=== PATIENT | male | born 1970 | race Caucasian/White ===

== ENCOUNTER 2017-11-16 06:53 | Emergency (ER) | payer MEDICAID, OTHER ==
[2017-11-16] MEDS ORDERED: LORazepam 2 MG/ML INJ IVP ONE (07:25)
[2017-11-16] MEDS ORDERED: NS 1,000 ML IV ONE (07:25)
[2017-11-16] MEDS ORDERED: LORazepam 2 MG/ML INJ ONE (07:27)
[2017-11-16 07:42] LABS: PLATELET COUNT 261 10^3/uL (150-400)
[2017-11-16] MEDS ORDERED: chlordiazePOXIDE 25 MG CAP PO ONE (07:48)
--- NOTE | 2017-11-16 07:48 | EDPHY ---
HPI/HX/ROS/PE/MDM Narrative: CHIEF COMPLAINT: Sensation of rapid heart rate HPI: The patient is a 47 y/o male with a history of alcoholism and recent methamphetamine use complaining of the sensation of a rapid "hard" heart rate and panic over the last 24 hours. He says, "I've been drinking for a like a month straight and doing some meth. I must have had some bad stuff. Now my heart 's coming out of my chest and extreme paranoia." He denies dyspnea, abdominal pain, nausea, vomiting, diaphoresis. No cardiac disease history. He is feeling improved since receiving 1mg IV Ativan here. REVIEW OF SYSTEMS: Aside from elements discussed in the HPI, a comprehensive 10-point review of systems was reviewed and is negative. PMH: Alcoholism, history of IV drug abuse (denies current IV use), appendectomy SOCIAL HISTORY: Alcohol and methamphetamine abuse PHYSICAL EXAM: General:Patient is alert, in no acute distress. HR 98. ENT:Eyes are normal to inspection. ENT inspection normal. Neck: Normal inspection. Full range of motion. Respiratory:No respiratory distress. Breath sounds normal bilaterally. Cardiovascular: Regular rate and rhythm. Strong peripheral pulses. Normal cap refill. Abdomen:The abdomen is nontender to palpation. There are no peritoneal signs. Back: Normal to inspection. No tenderness to palpation. Skin: Normal color. No rash. Warm and dry. Extremities: Normal appearance. Full range of motion. Neuro: Oriented x3. Normal motor function. Normal sensory function. ED Course: This is a 47 y/o male with alcoholism and active methamphetamine abuse who presents with the sensation of a rapid heart rate and panic over the last 24 hours since snorting methamphetamine. His exam is unremarkable here and he is feeling improved since receiving 1mg IV Ativan here. Plan for labs, UA, EKG. The 12 lead EKG was interpreted by myself. See hard copy and/or "tracemaster" electronic copy for interpretation. 50mg PO Librium administered. Labs including troponin are normal apart from positive drug screen for meth and THC. Reassessed patient and discussed findings. Symptoms have improved. Exam remains unchanged. He is willing to go to the [facility] with Librium for detox. Follow up and return precautions discussed. He is comfortable with this plan. - Data Points Imaging: I viewed and interpreted images myself Laboratory Results: Laboratory Results 11/16/17 07:30 11/16/17 07:30 11/16/17 11/16/17 11/16/17 09:11 09:00 07:30 WBC RBC Hgb Hct MCV MCH MCHC RDW Plt Count MPV Neut % (Auto) Lymph % (Auto) [place] % (Auto) Eos % (Auto) Baso % (Auto) Nucleat RBC Rel Count Absolute Neuts (auto) Absolute Lymphs (auto) Absolute Monos (auto) Absolute Eos (auto) Absolute Basos (auto) Absolute Nucleated RBC Immature Gran % Immature Gran # Sodium 143 mEq/L mEq/L (135-145) Potassium 3.8 mEq/L mEq/L (3.3-5.0) Chloride 108 mEq/L mEq/L (97-110) Carbon Dioxide 23 mEq/l mEq/l (22-31) Anion Gap 12 mEq/L mEq/L (8-16) BUN 13 mg/dL mg/dL (7-23) Creatinine 0.8 mg/dL mg/dL (0.7-1.3) Estimated GFR > 60 Glucose 91 mg/dL mg/dL (70-100) Calcium 9.3 mg/dL mg/dL (8.5-10.4) POC Troponin I 0.02 ng/mL ng/mL (0.00-0.08) Urine Opiates Screen NEGATIVE (NEGATIVE) Urine Barbiturates NEGATIVE (NEGATIVE) Ur Phencyclidine Scrn NEGATIVE (NEGATIVE) Ur Amphetamine Screen NON-NEGATIVE H (NEGATIVE) U Benzodiazepines Scrn NEGATIVE (NEGATIVE) Urine Cocaine Screen NEGATIVE (NEGATIVE) U Marijuana (THC) Screen NON-NEGATIVE H (NEGATIVE) 11/16/17 07:30 WBC 8.23 10^3/uL 10^3/uL (3.80-9.50) RBC 4.87 10^6/uL 10^6/uL (4.40-6.38) Hgb 14.9 g/dL g/dL (13.7-17.5) Hct 43.0 % % (40.0-51.0) MCV 88.3 fL fL (81.5-99.8) MCH 30.6 pg pg (27.9-34.1) MCHC 34.7 g/dL g/dL (32.4-36.7) RDW 13.3 % % (11.5-15.2) Plt Count 261 10^3/uL 10^3/uL (150-400) MPV 8.2 fL L fL (8.7-11.7) Neut % (Auto) 68.9 % % (39.3-74.2) Lymph % (Auto) 20.0 % % (15.0-45.0) [place] % (Auto) 9.1 % % (4.5-13.0) Eos % (Auto) 1.2 % % (0.6-7.6) Baso % (Auto) 0.7 % % (0.3-1.7) Nucleat RBC Rel Count 0.0 % % (0.0-0.2) Absolute Neuts (auto) 5.66 10^3/uL 10^3/uL (1.70-6.50) Absolute Lymphs (auto) 1.65 10^3/uL 10^3/uL (1.00-3.00) Absolute Monos (auto) 0.75 10^3/uL 10^3/uL (0.30-0.80) Absolute Eos (auto) 0.10 10^3/uL 10^3/uL (0.03-0.40) Absolute Basos (auto) 0.06 10^3/uL 10^3/uL (0.02-0.10) Absolute Nucleated RBC 0.00 10^3/uL 10^3/uL (0-0.01) Immature Gran % 0.1 % % (0.0-1.1) Immature Gran # 0.01 10^3/uL 10^3/uL (0.00-0.10) Sodium Potassium Chloride Carbon Dioxide Anion Gap BUN Creatinine Estimated GFR Glucose Calcium POC Troponin I Urine Opiates Screen Urine Barbiturates Ur Phencyclidine Scrn Ur Amphetamine Screen U Benzodiazepines Scrn Urine Cocaine Screen U Marijuana (THC) Screen Medications Given: Discontinued Medications Chlordiazepoxide HCl (Librium) 50 mg PO EDNOW ONE Stop: 11/16/17 07:49 Last Admin: 11/16/17 07:59 Dose: 50 mg Sodium Chloride (Ns) 1,000 mls @ 0 mls/hr IV EDNOW ONE; Wide Open PRN Reason: Protocol Stop: 11/16/17 07:26 Last Admin: 11/16/17 07:32 Dose: 1,000 mls Lorazepam (Ativan Injection) 1 mg IVP EDNOW ONE Stop: 11/16/17 07:26 Last Admin: 11/16/17 07:32 Dose: 1 mg Point of Care Test Results: Chemistry 11/16/17 09:11 POC Troponin I 0.02 ng/mL ng/mL (0.00-0.08) General Time Seen by Provider: 11/16/17 07:25 Initial Vital Signs: Initial Vital Signs Temperature (C) 36.8 C 11/16/17 06:59 Heart Rate 104 H 11/16/17 06:59 Respiratory Rate 16 11/16/17 06:59 Blood Pressure 154/112 H 11/16/17 06:59 O2 Sat (%) 96 11/16/17 06:59 O2 Delivery Mode Room Air Allergies/Adverse Reactions: No Known Allergies Allergy (Unverified 11/16/17 06:59) Home Medications: Medication Instructions Recorded NK [No Known Home Meds] 11/16/17 Departure - Departure Disposition: Home, Routine, Self-Care Clinical Impression: Palpitations, Alcohol abuse, Methamphetamine abuse Condition: Good Instructions: Heart Palpitations (ED), Abuse of Alcohol (ED), At-Risk Alcohol Use (ED), Polysubstance Abuse (ED) Additional Instructions: 1. Avoid abuse of alcohol and methamphetamine as these are likely contributing to your symptoms. 2. Follow up with professor of social work for unimproved symptoms. 3. Follow up with a primary care provider to establish care locally. 4. Return to the ED for worsening of condition. Referrals: [facility],. [Clinic] - As per Instructions [facility] 24 Hours [Outside] - As per Instructions Report Scribed for: Tristan Lucero Report Scribed by: Soniya Han Date of Report: 11/16/17 Time of Report: 07:48 Physician Review and Approval Statement: Portions of this note were transcribed by an ED scribe. I personally performed the history, physical exam, and medical decision making; and confirm the accuracy of the information in the transcribed note.
--- NOTE | 2017-11-16 08:02 | CPEKG ---
Heart Rate: 75 RR Interval: 800 P-R Interval: 168 QRSD Interval: 102 QT Interval: 424 QTC Interval: 474 P Warden: 37 QRS Warden: 31 T Wave Warden: 77 EKG Severity - BORDERLINE ECG - EKG Impression: SINUS RHYTHM EKG Impression: BORDERLINE T ABNORMALITIES, ANT-LAT LEADS Electronically Signed By: Shea Pastor 17-Nov-2017 07:20:01
[2017-11-16 09:09] VITALS: BP 155/102
[2017-11-16] MEDS ORDERED: CHLORDIAZEPOXIDE 25MG PREPK#6 BTL TAKEHOME ONE ×2 (09:45→09:46)
== END 2017-11-16 09:54 | disposition home or self-care (01) ==
DX: R00.2 Palpitations (principal); F10.10 Alcohol abuse, uncomplicated; F15.10 Other stimulant abuse, uncomplicated; E86.9 Volume depletion, unspecified
CPT/HCPCS: 80305; 84484-PO; 96374; J2060